=== PATIENT | female | born 1955 | race Hispanic/Latino ===

== ENCOUNTER 2021-01-31 11:33 | Emergency (ER) | payer BC | END 2021-01-31 13:57 | disposition home or self-care (01) | LOC: CSHERS 11:33 | DX: L50.9 Urticaria, unspecified (principal); K21.9 Gastro-esophageal reflux disease without esophagitis; M81.0 Age-related osteoporosis without current pathological fracture | CPT/HCPCS: 99283 ==

== ENCOUNTER 2025-08-12 17:01 | Emergency (ER) | payer MEDICARE ==
[2025-08-12] MEDS ORDERED: Ketorolac Tromethamine 30 MG (1 mL) VIAL ONE (17:48)
[2025-08-12 17:49] LABS: #Basophils 0.03 10x3/uL (0.0-0.2); #Eosinophils 0.15 10x3/uL (0.0-0.5); #Monocytes 0.44 10x3/uL (0.0-1.1); #Neutrophils 2.14 10x3/uL (1.5-8.4); %Basophils 0.7 % (0.0-2.0); %Eosinophils 3.4 % (0.0-6.0); %Lymphocytes 38.0 % (18.0-47.0); %Monocytes 9.8 % (0.0-10.0); %Neutrophils 47.9 % (40.0-75.0); Hematocrit 34.8 % (34.9-44.5); Hemoglobin 11.8 g/dL (12.0-15.5); Mean Corpuscular Hemoglobin 30.1 pg (27.0-33.0); Mean Corpuscular Volume 88.8 fL (81.6-98.3); Platelet Count 167 10x3/uL (150-450); Red Blood Cell (RBC) Count 3.92 10x6/uL (3.90-5.03); White Blood Cell (WBC) Count 4.47 10x3/uL (3.5-10.5)
[2025-08-12 18:04] LABS: ALT (SGPT) 24 U/L (Less than 34); AST (SGOT) 61 U/L (11-34); Albumin 3.6 g/dL (3.1-4.5); Alkaline Phosphatase 69 U/L (40-110); Anion Gap 9 mmol/L (10-20); BUN (Urea Nitrogen) 10 mg/dL (9.8-20.1); Bilirubin, Total 0.4 mg/dL (0.3-1.2); Calc. Creatinine Clearance 0 mL/min (70-130); Calcium 8.5 mg/dL (7.8-10.44); Carbon Dioxide 25 mmol/L (23-31); Chloride 106 mmol/L (98-107); Globulin 2.7 g/dL (2.4-3.5); Glucose 91 mg/dL (80-115); Lipase 63 U/L (8-78); Magnesium 2.2 mg/dL (1.6-2.6); Potassium 3.5 mmol/L (3.5-5.1); Sodium 136 mmol/L (136-145)
[2025-08-12 18:10] LABS: Troponin I Less than 0.010 ng/mL (< 0.028)
== END 2025-08-12 20:45 | disposition home or self-care (01) ==
LOC: CSHERS 17:01
DX: M47.812 Spondylosis without myelopathy or radiculopathy, cervical region (principal); R29.700 NIHSS score 0; Z75.8 Other problems related to medical facilities and other health care
CPT/HCPCS: 70496; 70498; 71045; 72040; 80053; 83690; 83735; 84484; 85025; 87428; 93005; J1885; 96374